=== PATIENT | female | born 1940 | race Caucasian/White ===

== ENCOUNTER 2024-05-01 12:05 | Outpatient (REF) | payer SELFPAY ==
[2024-05-01 12:14] LABS: MANUAL DIFF FLAG NO
[2024-05-01 12:33] LABS: Basophils Percent Auto 0.1 % (0-2); Eosinophils Percent Auto 0.2 % (0-4); Hemoglobin 8.2 g/dl (12.0-16.0); Imm Gran Abs Auto 0.05 X10*3/uL (0.00-0.03); Imm Gran Pct Auto 0.6 % (0.0-0.4); Lymphocytes Absolute Auto 1.1 X10*3/uL (1.2-4.9); Lymphocytes Percent Auto 12.8 % (20-40); Mean Corpuscular HGB Conc 28.3 g/dl (31.0-35.0); Mean Platelet Volume 9.8 fL (9.4-12.3); Monocytes Absolute Auto 0.6 X10*3/uL (0.1-1.2); Monocytes Percent Auto 7.3 % (2-11); Neutrophils Absolute Auto 6.7 x10*3/uL (2.0-8.3); Platelet Count 125 X10*3/uL (160-400); Red Blood Count 3.72 X10*6/uL (4.20-5.50); White Blood Count 8.5 X10*3/uL (4.8-10.8)
[2024-05-01 12:41] LABS: Anion Gap 14 (12-20); Blood Urea Nitrogen 10 mg/dL (9-16); Calcium 7.9 mg/dL (8.4-10.2); Carbon Dioxide 23 mmol/L (22-29); Chloride 110 mmol/L (96-108); Estimated Glomerular Filt Rate 56; Glucose Random 77 mg/dL (60-115); Potassium 3.4 mmol/L (3.3-5.1); Sodium 144 mmol/L (135-145)
--- OUTSIDE RECORDS SUMMARY | 2024-05-01 13:16 | XMS_ITS | Clinical Summary ---
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, OTHER SITE, 7THD Active 2023-04 00:00: 00 ESSENTIAL (PRIMARY) HYPERTENSION Active 2023-04 00:00: 00 ATHSCL HEART DISEASE OF [place] CORONARY ARTERY W/O ANG PCTRS Active 2023-04 00:00: 00 ANEMIA, UNSPECIFIED Active 2023-04 00:00: 00 UNSPECIFIED ASTHMA, UNCOMPLICATE D Active 2023-04 00:00: 00 CHRONIC PAIN SYNDROME Active 2023-04 00:00: 00 RHEUMATOID ARTHRITIS, UNSPECIFIED Active 2023-04 00:00: 00 UNSPECIFIED OSTEOARTHRIT IS, UNSPECIFIED SITE Active 2023-04 00:00: 00 OTHER SPECIFIED HYPOTHYROIDI SM Active 2023-04 00:00: 00 HYPERLIPIDEM IA, UNSPECIFIED Active 2023-04 00:00: 00 ACUTE KIDNEY FAILURE, UNSPECIFIED Active 2023-04 00:00: 00 CYST OF KIDNEY, ACQUIRED Active 2023-04 00:00: 00 GASTRO-ESOPH AGEAL REFLUX DISEASE WITHOUT ESOPHAGITIS Active 2023-04 00:00: 00 ADULT FAILURE TO THRIVE Active 2023-04 00:00: 00 PERSONAL HISTORY OF COVID-19 Active 2023-04 00:00: 00 PERSONAL HISTORY OF PNEUMONIA (RECURRENT) Active 2023-04 00:00: 00 ACQUIRED ABSENCE OF LEFT FINGER(S) Active 2023-04 00:00: 00 HISTORY OF FALLING Active 2023-04 00:00: 00 PENITENTIARY (CURRENT) USE OF INHALED STEROIDS Active 2023-04 00:00: 00 PENITENTIARY (CURRENT) USE OF SYSTEMIC STEROIDS Active 2023-04 00:00: 00 Allergies, Adverse Reactions, Alerts Allergy Name Allergy Type Status Severity Reaction(s) Onset Date Inactive Date Treating Clinician Comments DOXYCUCLINE Propensity to adverse reactions Active 2023-04 11:08: 00 LATEX, ALL Propensity to adverse reactions Active 2023-04 11:08: 09 BACTRIM Propensity to adverse reactions Active 2023-04 11:08: 16 SULFA DRUGS... Propensity to adverse reactions Active 2023-04 11:08: 40 MIRALAX Propensity to adverse reactions Active 2023-04 11:08: 59 Medications Ordered Medication Name Filled Medication Name Start Date Stop Date Current Medication? Ordering Clinician Indication Dosage Frequency Signature (SIG) Comments Components leucovorin calcium 5 mg tablet 2021-04 00:00: 00 03-22 00:00 :00 No [id number] Per instruc tions Per instructio ns (route: oral) Med Classific ation: Antineopl astics oxycodone 5 mg tablet 2021-04 00:00: 00 03-22 00:00 :00 No [id number] Per instruc tions Per instructio ns (route: oral) Med Classific ation: Analgesic , Anti-infl ammatory or Antipyret ic valacyclovi r 500 mg tablet 2021-04 105 00:00: 00 03-22 00:00 :00 No [id number] Per instruc tions Per instructio ns (route: oral) Med Classific ation: Anti-Infe ctive Agents cephalexin 500 mg capsule 2021-04 0-30 00:00: 00 03-22 00:00 :00 No [id number] Per instruc tions EVERY 6 HOURS FOR 10 DAYS Per instructio ns EVERY 6 HOURS FOR 10 DAYS (route: oral) Med Classific ation: Anti-Infe ctive Agents mupirocin 2 % topical ointment 2021-04 0-30 00:00: 00 03-22 00:00 :00 No [id number] Per instruc tions 3 TIMES A DAY Per instructio ns 3 TIMES A DAY (route: topical) Med Classific ation: Dermatolo gical metoprolol succinate ER 25 mg tablet,exte nded release 24 hr 2021-04 028 00:00: 00 03-22 00:00 :00 No [id number] Per instruc tions Per instructio ns (route: oral) Med Classific ation: Cardiovas cular Therapy Agents alendronate 70 mg tablet 2021-04 00:00: 00 05-04 23:59 :00 No [id number] BONES 1 tablet WEEKLY 1 tablet WEEKLY (route: oral) Med Classific ation: Endocrine Erlin-Gest Antacid 200 mg calcium (500 mg) chewable tablet 2021-04 00:00: 00 04-04 23:59 :00 No [id number] GERD 1 tablet 2 TIMES DAILY 1 tablet 2 TIMES DAILY (route: oral) Med Classific ation: Gastroint estinal Therapy Agents cholecalcif nayeli (vitamin D3) 125 mcg (5,000 unit) capsule 2021-04 00:00: 00 05-04 23:59 :00 No [id number] SUPPLEMENT 1 capsule DAILY 1 capsule DAILY (route: oral) Med Classific ation: Electroly te Balance-N utritiona l Products cyclobenzap rine 5 mg tablet 2021-04 00:00: 00 05-04 23:59 :00 No [id number] MUSCLE SPASMS .5 tablet BEDTIME .5 tablet BEDTIME (route: oral) Med Classific ation: Locomotor System methotrexat e sodium 2.5 mg tablet 2021-04 00:00: 00 04-21 23:59 :00 No [id number] INFLAMMATIO N 7 tablet WEEKLY 7 tablet WEEKLY (route: oral) Med Classific ation: Antineopl astics metoprolol succinate ER 50 mg tablet,exte nded release 24 hr 2021-04 00:00: 00 04-04 23:59 :00 No [id number] HTN 1 tablet DAILY 1 tablet DAILY (route: oral) Med Classific ation: Cardiovas cular Therapy Agents nitrofurant oin macrocrysta l 100 mg capsule 2021-04 00:00: 00 03-25 23:59 :00 No [id number] UTI 1 capsule 2 TIMES DAILY 1 capsule 2 TIMES DAILY (route: oral) Med Classific ation: Genitouri nary Therapy Pegasys 180 mcg/0.5 mL subcutaneou s syringe 2021-04 00:00: 00 05-04 23:59 :00 No [id number] IMMUNOTHERA PY 90 mcg WEEKLY 90 mcg WEEKLY (route: subcutaneo us) Med Classific ation: Anti-Infe ctive Agents prednisone 5 mg tablet 2021-04 00:00: 00 04-21 23:59 :00 No [id number] STEROID 1 tablet DAILY 1 tablet DAILY (route: oral) Med Classific ation: Endocrine gabapentin 100 mg capsule 2021-04 00:00: 00 05-04 23:59 :00 No [id number] PAIN 1 capsule BEDTIME 1 capsule BEDTIME (route: oral) Med Classific ation: Central Nervous System Agents prednisone 5 mg tablet 2021-04 00:00: 00 04-04 23:59 :00 No [id number] SHINGLES 2 tablet DAILY 2 tablet DAILY (route: oral) Med Classific ation: Endocrine amlodipine 10 mg tablet 05-04 00:00: 00 04-04 23:59 :00 No [id number] ANTIHYPERTE NSIVE 1 tablet DAILY 1 tablet DAILY (route: oral) Med Classific ation: Cardiovas cular Therapy Agents Cymbalta 20 mg capsule,del ayed release 05-04 00:00: 00 04-04 23:59 :00 No [id number] NEUROPATHIC DISCOMFORT 1 capsule DAILY 1 capsule DAILY (route: oral) Med Classific ation: Central Nervous System Agents omeprazole 20 mg capsule,del ayed release 05-04 00:00: 04-04 23:59 :00 No [id number] ANTIREFLUX 1 capsule DAILY 1 capsule DAILY (route: oral) Med Classific ation: Gastroint estinal Therapy Agents prednisone 5 mg tablet 2023-04 00:00: 00 Yes [id number] RHEUMATOID ARTHRITIS WITH RHEUMATOID FACTOR OF MULTIPLE SITES WITHOUT ORGAN OR Per instruc tions 2 TABLETS(10 MG TOTAL) DAILY Per instructio ns 2 TABLETS(10 MG TOTAL) DAILY (route: oral) Med Classific ation: Endocrine Wixela Inhub 250 mcg-50 mcg/dose powder for inhalation 2023-04 00:00: 00 Yes [id number] COPD Per instruc tions TWICE DAILY Per instructio ns TWICE DAILY (route: inhalation ) Med Classific ation: Respirato ry Therapy Agents albuterol sulfate HFA 90 mcg/actuati on aerosol inhaler 2023-04 00:00: 00 Yes [id number] ASTHMA 2 puff EVERY 4 HOURS 2 puff EVERY 4 HOURS (route: inhalation ) Med Classific ation: Respirato ry Therapy Agents amlodipine 10 mg tablet 2023-04 00:00: 00 Yes [id number] HTN 1 tablet DAILY 1 tablet DAILY (route: oral) Med Classific ation: Cardiovas cular Therapy Agents cyanocobala min (vit B-12) 500 mcg tablet 2023-04 00:00: 00 Yes [id number] SUPPLEMENT 1 tablet DAILY 1 tablet DAILY (route: oral) Med Classific ation: Electroly te Balance-N utritiona l Products Enbrel 50 mg/mL (1 mL) subcutaneou s syringe 2023-04 00:00: 00 Yes [id number] RA 1 mL WEEKLY 1 mL WEEKLY (route: subcutaneo us) Med Classific ation: Analgesic , Anti-infl ammatory or Antipyret ic fluticasone 250 mcg-salmet[place] rol 50 mcg/dose blistr powdr for inhalation 2023-04 00:00: 00 Yes [id number] ASTHMA 1 inhalat ion 2 TIMES DAILY 1 inhalation 2 TIMES DAILY (route: inhalation ) Med Classific ation: Respirato ry Therapy Agents leucovorin calcium 5 mg tablet 2023-04 00:00: 00 Yes [id number] RA 3 tablet WEEKLY 3 tablet WEEKLY (route: oral) Med Classific ation: Antineopl astics levothyroxi ne 25 mcg tablet 2023-04 00:00: 00 Yes [id number] THYROID 1 tablet DAILY 1 tablet DAILY (route: oral) Med Classific ation: Endocrine Lidoderm 5 % topical patch 2023-04 00:00: 00 Yes [id number] PAIN 1 adhesiv e patch, medicat ed DAILY 1 adhesive patch, medicated DAILY (route: topical) Med Classific ation: Dermatolo gical Lyrica 50 mg capsule 2023-04 00:00: 00 Yes [id number] NEUROPATHY 1 capsule 3 TIMES DAILY 1 capsule 3 TIMES DAILY (route: oral) Med Classific ation: Central Nervous System Agents methotrexat e 2.5 mg tablet 2023-04 00:00: 00 Yes [id number] RA Per instruc tions WEEKLY Per instructio ns WEEKLY (route: oral) Med Classific ation: Antineopl astics metoprolol succinate ER 25 mg tablet,exte nded release 24 hr 2023-04 00:00: 00 Yes [id number] HTN 1 tablet DAILY 1 tablet DAILY (route: oral) Med Classific ation: Cardiovas cular Therapy Agents Milk of Magnesia 400 mg/5 mL oral suspension 2023-04 00:00: 00 Yes [id number] CONSTIPATIO N 30 mL DAILY 30 mL DAILY (route: oral) Med Classific ation: Gastroint estinal Therapy Agents Nasal [place] Sinus 0.05 % 2023-04 00:00: 00 Yes [id number] CONGESTION 1 spray EVERY 6 HOURS 1 spray EVERY 6 HOURS (route: nasal) Med Classific ation: Respirato ry Therapy Agents Nyamyc 100,000 unit/gram topical powder 2023-04 00:00: 00 Yes [id number] RASH Per instruc tions 3 TIMES DAILY Per instructio ns 3 TIMES DAILY (route: topical) Med Classific ation: Dermatolo gical omeprazole 20 mg capsule,del ayed release 2023-04 00:00: 00 Yes [id number] GERD 1 capsule DAILY 1 capsule DAILY (route: oral) Med Classific ation: Gastroint estinal Therapy Agents prednisone 5 mg tablet 2023-04 00:00: 00 Yes [id number] RA 2 tablet DAILY 2 tablet DAILY (route: oral) Med Classific ation: Endocrine Tylenol 325 mg tablet 2023-04 00:00: 00 Yes [id number] PAIN 2 tablet EVERY 4 HOURS 2 tablet EVERY 4 HOURS (route: oral) Med Classific ation: Analgesic , Anti-infl ammatory or Antipyret ic Vital Signs Vital Name Observation Time Observation Value Commen ts Temperature 2024-04-09 11:12:00.000 97.5 [degF] BMI (%) 2024-04-09 11:12:00.000 21 kg/m2 Height 2024-04-09 11:12:00.000 55 [in_us] Pulse 2024-04-09 11:12:00.000 88 /min O2 Saturation (%) 2024-04-09 11:12:00.000 98 % Respirations 2024-04-09 11:12:00.000 16 /min Weight (lbs) 2024-04-09 11:12:00.000 92 [lb_av] Systolic Blood Pressure 2024-04-09 11:12:00.000 126 mm [Hg] Diastolic Blood Pressure 2024-04-09 11:12:00.000 70 mm [Hg] Plan of Treatment Planned Activity Planned Date Details Comments Future Scheduled Test AGENCY MAY PERFORM A RESUMPTION OF CARE VISIT FOLLOWING ANY HOSPITAL ADMISSION. PT TO EVALUATE, OBSERVE / ASSESS, AND MONITOR, CURRICULUM DIRECTOR TO OBSERVE AND MONITOR, PROVIDE SKILLED THERAPEUTIC INTERVENTION, ACTIVITY, EDUCATION, AND TRAINING TO ADDRESS; [code = AGENCY MAY PERFORM A RESUMPTION OF CARE VISIT FOLLOWING ANY HOSPITAL ADMISSION. PT TO EVALUATE, OBSERVE / ASSESS, AND MONITOR, CURRICULUM DIRECTOR TO OBSERVE AND MONITOR, PROVIDE SKILLED THERAPEUTIC INTERVENTION, ACTIVITY, EDUCATION, AND TRAINING TO ADDRESS;] Future Scheduled Test CHAIR KAY SFERS (PT/CURRICULUM DIRECTOR) [code = CHAIR TRANSFERS (PT/CURRICULUM DIRECTOR)] Future Scheduled Test PT/CURRICULUM DIRECTOR TO PROVIDE GAIT TRAINING FOR IMPROVED MOBILITY AND /OR TO NORMALIZE GAIT PATTERN [code = PT/CURRICULUM DIRECTOR TO PROVIDE GAIT TRAINING FOR IMPROVED MOBILITY AND /OR TO NORMALIZE GAIT PATTERN] Future Scheduled Test NEUROMUSCU LAR RE-EDUCATION / BALANCE / POSTURAL CONTROL (PT) [code = NEUROMUSCULAR RE-EDUCATION / BALANCE / POSTURAL CONTROL (PT)] Future Scheduled Test THERAPEUTI C EXERCISES AND ESTABLISHING A HOME EXERCISE PROGRAM (PT/CURRICULUM DIRECTOR) [code = THERAPEUTIC EXERCISES AND ESTABLISHING A HOME EXERCISE PROGRAM (PT/CURRICULUM DIRECTOR)] Future Scheduled Test PT/CURRICULUM DIRECTOR TO IDENTIFY FALL RISK FACTORS; EDUCATE THE PATIENT/CAREGIVER ON WAYS TO REDUCE FALL RISK FACTORS AND ESTABLISH HOME EXERCISE PROGRAM TO MINIMIZE FALL RISK. MAY TEACH THE PATIENT FLOOR RECOVERY WHEN CLINICALLY APPROPRIATE [code = PT/CURRICULUM DIRECTOR TO IDENTIFY FALL RISK FACTORS; EDUCATE THE PATIENT/CAREGIVER ON WAYS TO REDUCE FALL RISK FACTORS AND ESTABLISH HOME EXERCISE PROGRAM TO MINIMIZE FALL RISK. MAY TEACH THE PATIENT FLOOR RECOVERY WHEN CLINICALLY APPROPRIATE] Future Scheduled Test PT / CURRICULUM DIRECTOR M AY EDUCATE ON PAIN MANAGEMENT CLINICALLY INDICATED, INCLUDING NON-PHARMACOLOGICAL PAIN REDUCTION TECHNIQUES AND USE OF CRYOTHERAPY OR HEAT UP TO 20 MIN AT A TIME FOR PAIN MANAGEMENT 4 TIMES PER DAY TO AFFECTED AREAS. [code = PT / CURRICULUM DIRECTOR MAY EDUCATE ON PAIN MANAGEMENT CLINICALLY INDICATED, INCLUDING NON-PHARMACOLOGICAL PAIN REDUCTION TECHNIQUES AND USE OF CRYOTHERAPY OR HEAT UP TO 20 MIN AT A TIME FOR PAIN MANAGEMENT 4 TIMES PER DAY TO AFFECTED AREAS.] Goal Patient Goal - GET STRONGER Goal Provider Goal - Goal Provider Goal - PT STG: PATIENT WILL DEMONSTRATE IMPROVED ABILITY TO PERFORM CHAIR TRANSFERS TO REDUCE THE RISK OF SKIN BREAKDOWN AND FALL RISK FROM MIN A TO INDEPENDENT WITHIN 5 WEEKS. Goal Provider Goal - PT LTG: PATIENT WILL DEMONSTRATE IMPROVED AMBULATION FROM MIN A TO INDEPENDENT WITHIN 9 WEEKS PT LTG: PATIENT WILL DEMONSTRATE IMPROVE RAMP SKILLS FROM MINIMAL ASSISTANCE TO INDEPENDENT WITHIN 9 WEEKS TO ALLOW PATIENT TO GET TO AND FROM CAR INDEPENDENTLY. PT LTG: PATIENT WILL DEMONSTRATE REDUCED FALL RISK EVIDENCED BY IMPROVED SELF- SELECTED WALKING SPEED (SSWS CUT SCORE 0.6 TO 0.9 INDICATES MODERATE FALL RISK, 0.6 M/S INDICATES HIGH FALL RISK) FROM MIN A TO 0.6 WITHIN 9 WEEKS. PT LTG: PATIENT WILL DEMONSTRATE REDUCED FALL RISK EVIDENCED BY TUG TEST (CUT SCORE >11 SECONDS INDICATES INCREASED FALL RISK) IMPROVING FROM MIN A TO 15 WITHIN 9 WEEKS. PT LTG: PATIENT WILL DEMONSTRATE INCREASED STRENGTH OF BILAT LES FROM 3+ TO 4-/5 WITHIN 9 WEEKS IN ORDER TO RETURN TO INDEPENDENT TRANSFER AND AMBULATION SKILLS. PT STG: PATIENT WILL DEMONSTRATE IMPROVED ABILITY TO PERFORM SIT TO/FROM STAND TRANSFERS TO REDUCE THE RISK OF SKIN BREAKDOWN AND REDUCE FALL RISK FROM MIN A TO INDEPENDENT WITHIN 4 WEEKS. Goal Provider Goal - Goal Provider Goal - Goal Provider Goal - PT LTG: PATIENT/CAREGIVER WILL DEMONSTRATE ADHERENCE TO FALL REDUCTION SELF-MANAGEMENT AND REDUCING FALL RISK FACTORS TO MINIMIZE FALL RISK BY END OF EPISODE. PT LTG: PATIENT WILL BE INDEPENDENT WITH IMPLEMENTATION OF HEP WITHIN 5 WEEKS. Goal Provider Goal - PT GOAL: PATIENT WILL DEMONSTRATE UNDERSTANDING OF PAIN MANAGEMENT TECHNIQUES EVIDENCED BY REDUCED GENERALIZED PAIN FROM 6 TO 2 WITHIN 9 WEEKS. Encounters Start Date/Time End Date/Time Encounter Type Admission Type Attending Rust Care Department Encounter ID Discharge Date Discharge Status Discharge Condition Discharge Reason Percent Goals Met 2024-04-09 00:00:00 2024-06-07 00:00:00 Outpatient [facility] BY[facility] [id number]
--- OUTSIDE RECORDS SUMMARY | 2024-05-01 13:16 | XMS_ITS | Clinical Summary ---
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, OTHER SITE, 7THD Active 2023-04 00:00: 00 ESSENTIAL (PRIMARY) HYPERTENSION Active 2023-04 00:00: 00 ATHSCL HEART DISEASE OF [place] CORONARY ARTERY W/O ANG PCTRS Active 2023-04 [...] HISTORY OF FALLING Active 2023-04 00:00: 00 HALF-WAY (CURRENT) USE OF INHALED STEROIDS Active 2023-04 00:00: 00 HALF-WAY (CURRENT) USE OF SYSTEMIC STEROIDS Active 2023-04 [...] 2021-04 00:00: 00 03-22 00:00 :00 No [id number] Per instruc tions Per instructio ns (route: oral) Med Classific ation: Antineopl astics oxycodone 5 mg tablet 2021-04 00:00: 00 03-22 00:00 :00 No [id number] Per instruc tions Per instructio ns (route: oral) Med Classific ation: Analgesic , Anti-infl ammatory or Antipyret ic valacyclovi r 500 mg tablet 2021-04 105 00:00: 00 03-22 00:00 :00 No [id number] Per instruc tions Per instructio ns (route: oral) Med Classific ation: Anti-Infe ctive Agents cephalexin 500 mg capsule 2021-04 0-30 00:00: 00 03-22 00:00 :00 No [id number] Per instruc tions EVERY 6 HOURS FOR 10 DAYS Per instructio ns EVERY 6 HOURS FOR 10 DAYS (route: oral) Med Classific ation: Anti-Infe ctive Agents mupirocin 2 % topical ointment 2021-04 0-30 00:00: 00 03-22 00:00 :00 No [id number] Per instruc tions 3 TIMES A DAY Per instructio ns 3 TIMES A DAY (route: topical) Med Classific ation: Dermatolo gical metoprolol succinate ER 25 mg tablet,exte nded release 24 hr 2021-04 028 00:00: 00 03-22 00:00 :00 No [id number] Per instruc tions Per instructio ns (route: oral) Med Classific ation: Cardiovas cular Therapy Agents alendronate 70 mg tablet 2021-04 00:00: 00 05-04 23:59 :00 No [id number] BONES 1 tablet WEEKLY 1 tablet WEEKLY (route: oral) Med Classific ation: Endocrine Erlin-Gest Antacid 200 mg calcium (500 mg) chewable tablet 2021-04 00:00: 00 04-04 23:59 :00 No [id number] GERD 1 tablet 2 TIMES DAILY 1 tablet 2 TIMES DAILY (route: oral) Med Classific ation: Gastroint estinal Therapy Agents cholecalcif nayeli (vitamin D3) 125 mcg (5,000 unit) capsule 2021-04 00:00: 00 05-04 23:59 :00 No [id number] SUPPLEMENT 1 capsule DAILY 1 capsule DAILY (route: oral) Med Classific ation: Electroly te Balance-N utritiona l Products cyclobenzap rine 5 mg tablet 2021-04 00:00: 00 05-04 23:59 :00 No [id number] MUSCLE SPASMS .5 tablet BEDTIME .5 tablet BEDTIME (route: oral) Med Classific ation: Locomotor System methotrexat e sodium 2.5 mg tablet 2021-04 00:00: 00 04-21 23:59 :00 No [id number] INFLAMMATIO N 7 tablet WEEKLY 7 tablet WEEKLY (route: oral) Med Classific ation: Antineopl astics metoprolol succinate ER 50 mg tablet,exte nded release 24 hr 2021-04 00:00: 00 04-04 23:59 :00 No [id number] HTN 1 tablet DAILY 1 tablet DAILY (route: oral) Med Classific ation: Cardiovas cular Therapy Agents nitrofurant oin macrocrysta l 100 mg capsule 2021-04 00:00: 00 03-25 23:59 :00 No [id number] UTI 1 capsule 2 TIMES DAILY 1 capsule 2 TIMES DAILY (route: oral) Med Classific ation: Genitouri nary Therapy Pegasys 180 mcg/0.5 mL subcutaneou s syringe 2021-04 00:00: 00 05-04 23:59 :00 No [id number] IMMUNOTHERA PY 90 mcg WEEKLY 90 mcg WEEKLY (route: subcutaneo us) Med Classific ation: Anti-Infe ctive Agents prednisone 5 mg tablet 2021-04 00:00: 00 04-21 23:59 :00 No [id number] STEROID 1 tablet DAILY 1 tablet DAILY (route: oral) Med Classific ation: Endocrine gabapentin 100 mg capsule 2021-04 00:00: 00 05-04 23:59 :00 No [id number] PAIN 1 capsule BEDTIME 1 capsule BEDTIME (route: oral) Med Classific ation: Central Nervous System Agents prednisone 5 mg tablet 2021-04 00:00: 00 04-04 23:59 :00 No [id number] SHINGLES 2 tablet DAILY 2 tablet DAILY (route: oral) Med Classific ation: Endocrine amlodipine 10 mg tablet 05-04 00:00: 00 04-04 23:59 :00 No [id number] ANTIHYPERTE NSIVE 1 tablet DAILY 1 tablet DAILY (route: oral) Med Classific ation: Cardiovas cular Therapy Agents Cymbalta 20 mg capsule,del ayed release 05-04 00:00: 00 04-04 23:59 :00 No [id number] NEUROPATHIC DISCOMFORT 1 capsule DAILY 1 capsule DAILY (route: oral) Med Classific ation: Central Nervous System Agents omeprazole 20 mg capsule,del ayed release 05-04 00:00: 04-04 23:59 :00 No [id number] ANTIREFLUX 1 capsule DAILY 1 capsule DAILY (route: oral) Med Classific ation: Gastroint estinal Therapy Agents prednisone 5 mg tablet 2023-04 00:00: 00 Yes [id number] RHEUMATOID ARTHRITIS WITH RHEUMATOID FACTOR OF MULTIPLE SITES WITHOUT ORGAN OR Per instruc tions 2 TABLETS(10 MG TOTAL) DAILY Per instructio ns 2 TABLETS(10 MG TOTAL) DAILY (route: oral) Med Classific ation: Endocrine Wixela Inhub 250 mcg-50 mcg/dose powder for inhalation 2023-04 00:00: 00 Yes [id number] COPD Per instruc tions TWICE DAILY Per instructio ns TWICE DAILY (route: inhalation ) Med Classific ation: Respirato ry Therapy Agents albuterol sulfate HFA 90 mcg/actuati on aerosol inhaler 2023-04 00:00: 00 Yes [id number] ASTHMA 2 puff EVERY 4 HOURS 2 puff EVERY 4 HOURS (route: inhalation ) Med Classific ation: Respirato ry Therapy Agents amlodipine 10 mg tablet 2023-04 00:00: 00 Yes [id number] HTN 1 tablet DAILY 1 tablet DAILY (route: oral) Med Classific ation: Cardiovas cular Therapy Agents cyanocobala min (vit B-12) 500 mcg tablet 2023-04 00:00: 00 Yes [id number] SUPPLEMENT 1 tablet DAILY 1 tablet DAILY (route: oral) Med Classific ation: Electroly te Balance-N utritiona l Products Enbrel 50 mg/mL (1 mL) subcutaneou s syringe 2023-04 00:00: 00 Yes [id number] RA 1 mL WEEKLY 1 mL WEEKLY (route: subcutaneo us) Med Classific ation: Analgesic , Anti-infl ammatory or Antipyret ic fluticasone 250 mcg-salmete rol 50 mcg/dose blistr powdr for inhalation 2023-04 00:00: 00 Yes [id number] ASTHMA 1 inhalat ion 2 TIMES DAILY 1 inhalation 2 TIMES DAILY (route: inhalation ) Med Classific ation: Respirato ry Therapy Agents leucovorin calcium 5 mg tablet 2023-04 00:00: 00 Yes [id number] RA 3 tablet WEEKLY 3 tablet WEEKLY (route: oral) Med Classific ation: Antineopl astics levothyroxi ne 25 mcg tablet 2023-04 00:00: 00 Yes [id number] THYROID 1 tablet DAILY 1 tablet DAILY (route: oral) Med Classific ation: Endocrine Lidoderm 5 % topical patch 2023-04 00:00: 00 Yes [id number] PAIN 1 adhesiv e patch, medicat ed DAILY 1 adhesive patch, medicated DAILY (route: topical) Med Classific ation: Dermatolo gical Lyrica 50 mg capsule 2023-04 00:00: 00 Yes [id number] NEUROPATHY 1 capsule 3 TIMES DAILY 1 capsule 3 TIMES DAILY (route: oral) Med Classific ation: Central Nervous System Agents methotrexat e 2.5 mg tablet 2023-04 00:00: 00 Yes [id number] RA Per instruc tions WEEKLY Per instructio ns WEEKLY (route: oral) Med Classific ation: Antineopl astics metoprolol succinate ER 25 mg tablet,exte nded release 24 hr 2023-04 00:00: 00 Yes [id number] HTN 1 tablet DAILY 1 tablet DAILY (route: oral) Med Classific ation: Cardiovas cular Therapy Agents Milk of Magnesia 400 mg/5 mL oral suspension 2023-04 00:00: 00 Yes [id number] CONSTIPATIO N 30 mL DAILY 30 mL DAILY (route: oral) Med Classific ation: Gastroint estinal Therapy Agents Nasal Allgood Sinus 0.05 % 2023-04 00:00: 00 Yes [id number] CONGESTION 1 spray EVERY 6 HOURS 1 spray EVERY 6 HOURS (route: nasal) Med Classific ation: Respirato ry Therapy Agents Nyamyc 100,000 unit/gram topical powder 2023-04 00:00: 00 Yes [id number] RASH Per instruc tions 3 TIMES DAILY Per instructio ns 3 TIMES DAILY (route: topical) Med Classific ation: Dermatolo gical omeprazole 20 mg capsule,del ayed release 2023-04 00:00: 00 Yes [id number] GERD 1 capsule DAILY 1 capsule DAILY (route: oral) Med Classific ation: Gastroint estinal Therapy Agents prednisone 5 mg tablet 2023-04 00:00: 00 Yes [id number] RA 2 tablet DAILY 2 tablet DAILY (route: oral) Med Classific ation: Endocrine Tylenol 325 mg tablet 2023-04 00:00: 00 Yes [id number] PAIN 2 tablet EVERY 4 HOURS 2 [...] TO EVALUATE, OBSERVE / ASSESS, AND MONITOR, OBSTETRICS GYN TO OBSERVE AND MONITOR, PROVIDE SKILLED THERAPEUTIC INTERVENTION, ACTIVITY, EDUCATION, AND TRAINING TO ADDRESS; [code = AGENCY MAY PERFORM A RESUMPTION OF CARE VISIT FOLLOWING ANY HOSPITAL ADMISSION. PT TO EVALUATE, OBSERVE / ASSESS, AND MONITOR, OBSTETRICS GYN TO OBSERVE AND MONITOR, PROVIDE SKILLED THERAPEUTIC INTERVENTION, ACTIVITY, EDUCATION, AND TRAINING TO ADDRESS;] Future Scheduled Test CHAIR KAY SFERS (PT/OBSTETRICS GYN) [code = CHAIR TRANSFERS (PT/OBSTETRICS GYN)] Future Scheduled Test PT/OBSTETRICS GYN TO PROVIDE GAIT TRAINING FOR IMPROVED MOBILITY AND /OR TO NORMALIZE GAIT PATTERN [code = PT/OBSTETRICS GYN TO PROVIDE GAIT TRAINING FOR IMPROVED MOBILITY AND /OR TO NORMALIZE GAIT PATTERN] Future Scheduled Test NEUROMUSCU LAR RE-EDUCATION / BALANCE / POSTURAL CONTROL (PT) [code = NEUROMUSCULAR RE-EDUCATION / BALANCE / POSTURAL CONTROL (PT)] Future Scheduled Test THERAPEUTI C EXERCISES AND ESTABLISHING A HOME EXERCISE PROGRAM (PT/OBSTETRICS GYN) [code = THERAPEUTIC EXERCISES AND ESTABLISHING A HOME EXERCISE PROGRAM (PT/OBSTETRICS GYN)] Future Scheduled Test PT/OBSTETRICS GYN TO IDENTIFY FALL RISK FACTORS; EDUCATE THE PATIENT/CAREGIVER ON WAYS TO REDUCE FALL RISK FACTORS AND ESTABLISH HOME EXERCISE PROGRAM TO MINIMIZE FALL RISK. MAY TEACH THE PATIENT FLOOR RECOVERY WHEN CLINICALLY APPROPRIATE [code = PT/OBSTETRICS GYN TO IDENTIFY FALL RISK FACTORS; EDUCATE THE PATIENT/CAREGIVER ON WAYS TO REDUCE FALL RISK FACTORS AND ESTABLISH HOME EXERCISE PROGRAM TO MINIMIZE FALL RISK. MAY TEACH THE PATIENT FLOOR RECOVERY WHEN CLINICALLY APPROPRIATE] Future Scheduled Test PT / OBSTETRICS GYN M AY EDUCATE ON PAIN MANAGEMENT CLINICALLY INDICATED, INCLUDING NON-PHARMACOLOGICAL PAIN REDUCTION TECHNIQUES AND USE OF CRYOTHERAPY OR HEAT UP TO 20 MIN AT A TIME FOR PAIN MANAGEMENT 4 TIMES PER DAY TO AFFECTED AREAS. [code = PT / OBSTETRICS GYN MAY EDUCATE ON PAIN MANAGEMENT CLINICALLY INDICATED, [...] End Date/Time Encounter Type Admission Type Attending [facility] Care Department Encounter ID Discharge Date Discharge Status Discharge Condition Discharge Reason Percent Goals Met 2024-04-09 00:00:00 2024-06-07 00:00:00 Outpatient DOROTA BYRD [facility] [id number]
== END 2024-05-01 12:06 | disposition home or self-care (01) ==
LOC: HO.MMNH2L 12:05
PROVIDERS: Visit Provider Nurse Practitioner
DX: N17.9 Acute kidney failure, unspecified (principal); Z16.12 Extended spectrum beta lactamase (ESBL) resistance
CPT/HCPCS: 36415; 80048; 85025